=== PATIENT | female | born 1970 | race Hispanic/Latino ===

== ENCOUNTER 2024-08-19 14:42 | Emergency (ER) | payer OTHER ==
[~2024-08-19] VITALS: Ht 170.2 cm; Wt 159.7 kg
[~2024-08-19 14:42] MED LIST: ALBU18HF7 IH; AMIO200T68 PO; APIX5TAB PO; CITA30CA PO; DIVA-78 PO; FURO40TA5 PO; LEVE10006 PO; LOSA50TA64 PO; SPIR25TA6 PO
[2024-08-19 14:48] VITALS: BP 133/75; PULSE 62; RESP 16; TEMP 98.2
== END 2024-08-19 16:43 | disposition left against medical advice (07) ==
LOC: EDH 14:42
DX: K92.1 Melena (principal); R10.9 Unspecified abdominal pain; Z53.21 Procedure and treatment not carried out due to patient leaving prior to being seen by health care provider

== ENCOUNTER 2025-01-06 07:13 | Day surgery (SDC) | payer OTHER, MEDICARE ==
[2025-01-06] VITALS (10 sets, daily range): BP systolic 111–134; BP diastolic 58–74; PULSE 52–65; RESP 15–17; TEMP 97.3–97.7
[~2025-01-06] VITALS: Ht 170.2 cm; Wt 163.3 kg
[~2025-01-06 07:13] MED LIST changes: -ALBU18HF7 IH; -AMIO200T68 PO; +AMIO200T73 PO; +DIVA-134 PO; -DIVA-78 PO; +LEVE100023 PO; -LEVE10006 PO
[2025-01-06] MEDS: 0.9%NACL 1000ML 1,000 ML IV ONE (09:38)
[2025-01-06] MEDS ORDERED: proPOFol 10 MG/ML 20ML VIAL IV ONE (10:28)
[2025-01-29] MEDS ORDERED: FLUT1BLS3 IH (02:24)
[2025-01-29] MEDS ORDERED: BACL10TA PO (02:24)
[2025-01-29] MEDS ORDERED: MONT-39 PO (02:24)
[2025-01-31] MEDS ORDERED: AZIT250T9 PO (14:50)
[2025-01-31] MEDS ORDERED: PRED20TA3 PO (14:51)
== END 2025-01-06 11:45 ==
LOC: ENDO 07:13 → DAH 07:13 → ENDO 11:45
PROVIDERS: ATTEND Internal Medicine Gastroenterology
DX: R19.5 Other fecal abnormalities (principal); K64.0 First degree hemorrhoids; R93.3 Abnormal findings on diagnostic imaging of other parts of digestive tract; R10.31 Right lower quadrant pain; I10 Essential (primary) hypertension; I25.10 Atherosclerotic heart disease of native coronary artery without angina pectoris; I48.20 Chronic atrial fibrillation, unspecified; J44.9 Chronic obstructive pulmonary disease, unspecified; R56.9 Unspecified convulsions; F32.A Depression, unspecified; Z88.0 Allergy status to penicillin; Z88.1 Allergy status to other antibiotic agents; E66.01 Morbid (severe) obesity due to excess calories; Z68.43 Body mass index [BMI] 50.0-59.9, adult; E78.00 Pure hypercholesterolemia, unspecified; Z86.718 Personal history of other venous thrombosis and embolism; Z90.710 Acquired absence of both cervix and uterus; Z79.01 Long term (current) use of anticoagulants; Z98.890 Other specified postprocedural states; Z79.899 Other long term (current) drug therapy
CPT/HCPCS: 00811; 45378; J7030 ×2; J2704; A4215; A4223; A4222; A4221; A4663; A4606; J3490

== ENCOUNTER 2025-05-29 06:13 | Day surgery (SDC) | payer OTHER, MEDICAID ==
[2025-05-29] VITALS (11 sets, daily range): BP systolic 117–154; BP diastolic 60–81; PULSE 55–65; RESP 16–20; TEMP 97.5–97.8
[~2025-05-29] VITALS: Ht 175.3 cm; Wt 172.4 kg
[~2025-05-29 06:13] MED LIST changes: +AZIT250T9 PO; +BACL10TA PO; -DIVA-134 PO; +FLUT1BLS3 IH; -FURO40TA5 PO; +MONT-39 PO; +PRED20TA3 PO
[2025-05-29] MEDS ORDERED: LOSA50TA64 PO (07:46)
[2025-05-29] MEDS ORDERED: [UNRECOGNIZED DRUG - OTHER] PO (07:46)
[2025-05-29] MEDS ORDERED: FURO40TA5 PO (07:46)
[2025-05-29] MEDS ORDERED: XCOPRI PO (07:46)
[2025-05-29] MEDS ORDERED: CITALOPRAM PO (07:46)
[2025-05-29] MEDS: 0.9%NACL 1000ML 1,000 ML IV ONE (07:51)
== END 2025-05-29 10:30 | disposition home or self-care (01) ==
LOC: DAH 06:13
PROVIDERS: ATTEND Internal Medicine Gastroenterology
DX: R19.5 Other fecal abnormalities (principal); K29.50 Unspecified chronic gastritis without bleeding; K44.9 Diaphragmatic hernia without obstruction or gangrene; K57.30 Diverticulosis of large intestine without perforation or abscess without bleeding; K64.0 First degree hemorrhoids; K63.5 Polyp of colon; K31.A0 Gastric intestinal metaplasia, unspecified; I10 Essential (primary) hypertension; E78.00 Pure hypercholesterolemia, unspecified; J45.909 Unspecified asthma, uncomplicated; I48.20 Chronic atrial fibrillation, unspecified; E66.01 Morbid (severe) obesity due to excess calories; Z68.43 Body mass index [BMI] 50.0-59.9, adult; Z86.718 Personal history of other venous thrombosis and embolism; Z90.49 Acquired absence of other specified parts of digestive tract; Z90.710 Acquired absence of both cervix and uterus; Z88.0 Allergy status to penicillin; Z79.899 Other long term (current) drug therapy; Z98.890 Other specified postprocedural states
CPT/HCPCS: 43239; 45380; J7030 ×2; J2704 ×2; A4620; A7002; J3490

== ENCOUNTER 2025-09-28 16:54 | Emergency (ER) | payer OTHER, MEDICAID ==
[~2025-09-28] VITALS: Ht 172.7 cm; Wt 170.6 kg
[~2025-09-28 16:54] MED LIST changes: -AZIT250T9 PO; -BACL10TA PO; -FLUT1BLS3 IH; +FURO40TA5 PO; -PRED20TA3 PO; +XCOPRI PO; +[UNRECOGNIZED DRUG - OTHER] PO
--- NOTE | 2025-09-28 17:01 | ERN ---
ED Note History of Present Illness Stated Complaint: MULTIPLE COMPLAINTS Chief Complaint: Multiple Complaints Time Seen by MD: 16:55 Dictation: PATIENT IS A 55-YEAR-OLD FEMALE WITH HERE WITH MULTIPLE COMPLAINTS TO INCLUDE SUPRAPUBIC PAIN AND EPIGASTRIC PAIN OFF AND ON FOR THE LAST TWO WEEKS. SHE DENIES FEVER CHILLS NAUSEA VOMITING. SHE ALSO STATES WITH THE EPIGASTRIC PAIN AFTER FOOD COMES TIMES IN THE PAIN RADIATES TO HER THROAT. SHE HAS NO SHORTNESS A BREATH STATES SHE HAS NOT BEEN TO SEE HER PRIMARY CARE DOCTOR IN HIS CHANGING INSURANCES ON October. Allergies: Coded Allergies: Penicillins (Unverified Allergy, Unknown, 01/03/25) cephalexin (Unverified Allergy, Unknown, 08/02/24) Home Meds Reported Medications Furosemide (Furosemide) 40 Mg Tablet, 1 TAB PO DAILY for 30 Days, #30 TAB 0 Refills 05/29/25 [Xcopri] No Conflict Check, 100 MG PO HS 05/29/25 Losartan Potassium (Losartan Potassium) 50 Mg Tablet, 1 TAB PO DAILY for 30 Days, #30 TAB 0 Refills 05/29/25 [Pivalproex] No Conflict Check, 500 MG PO TID 05/29/25 Montelukast Sodium (Montelukast Sodium) 10 Mg Tablet, 1 TAB PO DAILY for 30 Days, #30 TAB 0 Refills 01/29/25 Spironolactone (Spironolactone) 25 Mg Tablet, 1 TAB PO DAILY for 30 Days, #30 TAB 0 Refills 08/02/24 Apixaban (Eliquis) 5 Mg Tablet, 1 TAB PO BID for 30 Days, #60 TAB 0 Refills 08/02/24 Citalopram Hydrobromide (Citalopram HBr) 30 Mg Capsule, 30 MG PO AM, CAP 08/02/24 Levetiracetam (Levetiracetam) 1,000 Mg Tablet, 1 TAB PO BID for 30 Days, #60 TAB 0 Refills 08/02/24 Amiodarone HCl (Amiodarone HCl) 200 Mg Tablet, 1 TAB PO DAILY for 30 Days, #30 TAB 0 Refills 08/02/24 Past Medical History Past Medical History: Arrythmia, Asthma, COPD, GI Bleed, Hypertension, Seizure Surgical History: Hysterectomy, Cholecystectomy History: Not Applicable RN Note Reviewed/Agreed w/PFSH: Yes Review of System Dictation CONSTITUTIONAL: NEGATIVE EXCEPT FOR HPI HEAD/FACE: NEGATIVE EXCEPT FOR HPI EENT: NEGATIVE EXCEPT FOR HPI RESPIRATORY: NEGATIVE EXCEPT FOR HPI GASTROINTESTINAL/ABDOMINAL: NEGATIVE EXCEPT FOR HPI INTERMITTENT EPIGASTRIC AND SUPRAPUBIC PAIN TENDERNESS. TWO WEEKS GENITOURINARY: NEGATIVE EXCEPT FOR HPI MUSCULOSKELETAL: NEGATIVE EXCEPT FOR HPI INTEGUMENTARY: NEGATIVE EXCEPT FOR HPI NEUROLOGICAL/PSYCH: NEGATIVE EXCEPT FOR HPI HEMATOLOGIC/LYMPHATIC: NEGATIVE EXCEPT FOR HPI ALL SYSTEMS NEGATIVE, EXCEPT NOTED ABOVE. 13 POINT REVIEW OF SYSTEMS ASSESSED AND ALL NEGATIVE EXCEPT FOR ABOVE. Initial Vital Sign VS Vital Signs Date Time Temp Pulse Resp B/P (MAP) Pulse Ox O2 Delivery O2 Flow Rate FiO2 09/28/25 16:55 97.5 71 20 164/64 95 Room Air 09/28/25 20:09 0 21 Physical Exam Dictation VITAL SIGNS REVIEWED GENERAL APPEARANCE: ALERT, ORIENTED X 3, NO ACUTE DISTRESS, WELL DEVELOPED, NOURISHED. MORBID OBESITY 0/10 PAIN AT THIS TIME. HEAD AND FACE: NON-TRAUMATIC. EYES: PERRL, PINK CONJUNCTIVAS, EYELID NO TRAUMA, ANTERIOR CHAMBER WITH ARCUS SENILIS. EARS: PINNAS INTACT AND NO SIGNS OF TRAUMA OR ERYTHEMA EAR CANALS CLEAR AND NO DISCHARGE TM NO ERYTHEMA NOSE: NO DISCHARGE, NO BLEEDING. OROPHARYNX: MOUTH NORMAL, TONGUE PINK, PHARYNX CLEAR,NO ERYTHEMA, TONSILS NO EXUDATES, NO ABSCESSES NOTED, MUCOUS MEMBRANE MOIST NECK: SUPPLE, NON-TENDER, NO THYROMEGALY, NO MASSES, NO JVD, NO BRUITS BREAST:DEFERRED CHEST:NO TENDERNESS, NO CREPITUS, NO PARADOXICAL MOVEMENT, NO RETRACTIONS LUNGS:CLEAR, WELL-VENTILATED, SYMMETRIC, NO RALES, NO WHEEZING, NO RHONCHI, NO STRIDOR, GOOD BREATH SOUNDS BILATERALLY HEART: REGULAR RATE, REGULAR RHYTHM, NO MURMUR, NO GALLOPS VASCULAR: NO PERIPHERAL EDEMA, ABDOMEN: SOFT, POSITIVE BOWEL SOUNDS, NONDISTENDED, NO GUARDING, MILD SUPRAPUBIC TENDERNESS WITH PALPATION NEGATIVE CVAT BILATERALLY NEGATIVE MYERS'S SIGN RECTAL: DEFERRED GENITAL: DEFERRED NEUROLOGICAL: NORMAL SPEECH, MOTOR FUNCTION INTACT, SENSORY FUNCTION INTACT MUSCULOSKELETAL: NECK NONTENDER, FULL RANGE OF MOTION, BACK NONTENDER, FULL RANGE OF MOTION, EXTREMITIES: NONTENDER, FULL RANGE OF MOTION SKIN: COLOR PINK, DRY, NO TURGOR, NO RASH, NO LACERATIONS, NO ABRASIONS, NO CONTUSIONS. LYMPHATIC: DEFERRED Results (Laboratory/Radiology) Laboratory/Radiology Laboratory Tests Test 09/28/25 17:14 09/28/25 20:00 White Blood Count 6.9 K/uL (4.8-10.8) Red Blood Count 4.15 MIL/uL (4.00-5.50) Hemoglobin 12.6 g/dL (12.0-16.0) Hematocrit 39.1 % (36-48) Mean Corpuscular Volume 94.2 fL (79-99) Mean Corpuscular Hemoglobin 30.4 pg (27.0-33.0) Mean Corpuscular Hemoglobin Concent 32.2 g/dL (32.0-36.0) Red Cell Distribution Width 13.7 % (11.0-15.5) Platelet Count 187 K/uL (130-400) Mean Platelet Volume 11.9 fL (7.5-10.5) H Immature Granulocyte % (Auto) 1.2 % (0-1) H Neutrophils (%) (Auto) 43.3 % (40.0-77.0) Lymphocytes (%) (Auto) 38.8 % (21.0-51.0) Monocytes (%) (Auto) 13.2 % (3.0-13.0) H Eosinophils (%) (Auto) 2.9 % (0.0-8.0) Basophils (%) (Auto) 0.6 % (0.0-5.0) Neutrophils # (Auto) 3.0 K/uL (1.8-7.7) Lymphocytes # (Auto) 2.7 K/uL (1.0-4.8) Monocytes # (Auto) 0.9 K/uL (0.1-1.0) Eosinophils # (Auto) 0.20 K/uL (0.00-0.70) Basophils # (Auto) 0.04 K/uL (0.00-0.20) Absolute Immature Granulocyte (auto 0.08 K/uL (0-1) Nucleated Red Blood Cells 0.0 % (0.0-0.19) Sodium Level 142 mmol/L (136-145) Potassium Level 4.2 mmol/L (3.5-5.1) Chloride Level 106 mmol/L (101-111) Carbon Dioxide Level 29 mmol/L (21-32) Blood Urea Nitrogen 14 mg/dL (7-18) Creatinine 0.8 mg/dL (0.5-1.0) Glomerular Filtration Rate Calc 86 mL/min (>90) Random Glucose 101 mg/dL (70-105) Total Calcium 8.3 mg/dL (8.5-10.1) L Troponin I High Sensitivity < 4 ng/L (4-50) L Lipase 37 U/L (16-77) Urine Color YELLOW (YELLOW) Urine Appearance CLEAR (CLEAR) Urine pH 6.0 (5.0-8.0) Urine Specific [place] 1.030 (1.001-1.031) Urine Protein NEGATIVE mg/dL (NEGATIVE) Urine Glucose (UA) NEGATIVE mg/dL (NEGATIVE) Urine Ketones 5 mg/dL (NEGATIVE) H Urine Occult Blood NEGATIVE (NEGATIVE) Urine Nitrate NEGATIVE (NEGATIVE) Urine Bilirubin NEGATIVE mg/dL (NEGATIVE) Urine Urobilinogen 4.0 mg/dL (0.2-1.0) H Urine Leukocyte Esterase NEGATIVE Radha/uL Urine RBC 11-25 /HPF (0-1) H Urine WBC 2-5 /HPF (0-1) H Urine Squamous Epithelial Cells FEW /HPF (0-2) Urine Bacteria RARE /HPF (None Seen) Urine Hyaline Casts 0-1 /LPF (0-1 /LPF) ORDERING PHYSICIAN: RICHIE CASTELLANOS PROCEDURE: CXR1VW - CHEST 1VW EXAM: CR Chest, 1 View. CLINICAL HISTORY: INTERMITTENT CHEST PAIN TWO WEEKS COMPARISON: January 31, 2025. FINDINGS: LUNGS: There is no mass, infiltrate, or acute pulmonary abnormality. PLEURAL SPACES: No pleural effusion or pneumothorax. MEDIASTINUM: Stable mild cardiomegaly. BONES: No aggressive appearing osseous lesion seen. IMPRESSION: No acute cardiopulmonary pathology is evident. Stable cardiomegaly. No significant interval change /[place] Labs Reviewed?: Yes EKG Comment: 1727/EKG SINUS RHYTHM/HEART RATE 71/OCCASIONAL PACS. NONSPECIFIC CHANGES TO LEADS V4 V5 V6 ED Course ED Course Orders Procedure Category Date Status Time Cbc With Differential LAB 09/28/25 Complete 16:58 Troponin I High LAB 09/28/25 Complete Sensitivity 16:58 Urinalysis Profile LAB 09/28/25 Complete 16:58 12 Lead Ekg Tracing- EKG 09/28/25 Complete Technical 16:58 Chest 1vw RAD 09/28/25 Resulted 16:58 Lipase LAB 09/28/25 Complete 16:58 Basic Metabolic Panel LAB 09/28/25 Complete 16:58 Vital Signs Date Time Temp Pulse Resp B/P (MAP) Pulse Ox O2 Delivery O2 Flow Rate FiO2 09/28/25 20:09 98.1 78 17 149/98 98 Room Air* 0 21 09/28/25 16:55 97.5 71 20 164/64 95 Room Air 5/PATIENT HAS NO PAIN AT THIS TIME. SHE IS AWARE HER WORKUP AND TO INCLUDE CARDIAC WAS COMPLETELY UNREMARKABLE SHE DOES HAVE A ACUTE UTI AND WE WILL BE TREATED WITH LEVAQUIN TOLD TO SEE HER DOCTOR MONDAY. Medical Decision Making MDM MDM: DIFFERENTIAL DIAGNOSIS: ACS/AMI/ELECTROLYTE IMBALANCE/DEHYDRATION/GASTRITIS/GERD/UTI/PATROL INSPECTOR/ESOPHAGEAL REFLUX DISEASE RATIONALE: TESTS CONSIDERED AND ORDERED SECONDARY TO SHARED DECISION MAKING INCLUDE: EKG/LABS PREVIOUS OUTSIDE RECORDS REVIEWED: OLD ER VISITS. RISK OF COMPLICATION AND/OR MORBIDITY OR MORTALITY OF PATIENT MANAGEMENT: NONE MEDICATIONS-PER MEDICATION RECONCILIATION NEED FOR HOSPITALIZATION: PATIENT DOES NOT MEET CRITERIA FOR HOSPITALIZATION. NONE NEED FOR EMERGENCY MAJOR/MINOR SURGERY: NO THERE ARE NO SOCIAL CONCERNS WITH THIS PATIENT. PRESCRIPTION DRUG MANAGEMENT LEVAQUIN/OMEPRAZOLE PRESCRIPTIONS WILL INCLUDE SYMPTOMATIC CARE PATIENT'S PRIOR EXTERNAL MEDICAL RECORDS FROM OTHER ER VISITS WERE REVIEWED BY ME INDICATED. PRIOR TESTING AND RESULTS FROM PREVIOUS VISITS WERE REVIEWED. PRIOR TESTS WERE TAKEN INTO ACCOUNT WITH MEDICAL DECISION MAKING AND RESOURCE UTILIZATION, INDEPENDENT HISTORIAN/HISTORIANS WERE USED TO OBTAIN COMPLETE MEDICAL HISTORY. I INDEPENDENTLY INTERPRETED THE TEST THAT WERE PERFORMED, RESULTS WERE REVIEWED BY ME AND CONSIDERED FINDINGS ON RADIOLOGY IF ORDERED. MEDICAL MANAGEMENT AND EXAMINATION INTERPRETATION DISCUSSIONS WERE HAD BY ME WITH OTHER QUALIFIED HEALTHCARE PROFESSIONALS INDICATED FOR THE PATIENT'S C ARE. DX & DISP Disposition: Discharge Departure Impression: Primary Impression: Acute UTI Additional Impressions: Gastritis, Hypocalcemia Condition: Stable Scripts Omeprazole (Omeprazole) 40 Mg Capsule.dr 1 CAP PO DAILY for 30 Days, #30 CAP 0 Refills Prov: RICHIE CASTELLANOSP 09/28/25 Levofloxacin (Levofloxacin) 500 Mg Tablet 1 TAB PO DAILY for 7 Days, #7 TAB 0 Refills Prov: RICHIE CASTELLANOS 09/28/25 Additional Instructions: FOLLOW-UP WITH PRIMARY CARE PROVIDER IN 1 TO 2 DAYS. TAKE MEDICATIONS DIRECTED HERE IN THE EMERGENCY ROOM. OKAY TO CONTINUE HOME MEDICATIONS UNLESS OTHERWISE DISCUSSED DURING YOUR VISIT IN THE EMERGENCY ROOM TODAY. RETURN TO YOUR NEAREST EMERGENCY ROOM IF SYMPTOMS WORSEN OR IF THERE IS NO IMPROVEMENT. CALL 911 IF YOU NEED IMMEDIATE ASSISTANCE. TAKE TYLENOL OR MOTRIN OVER-THE- COUNTER NEEDED AND IF NO CONTRAINDICATIONS ARE PRESENT. INCREASE ORAL HYDRATION. A WOUND CULTURE OR URINE CULTURE WAS ORDERED HERE IN THE EMERGENCY ROOM DEPARTMENT PLEASE FOLLOW-UP WITH PRIMARY CARE PROVIDER AND ADVISE THEM TO GET REPEAT PORTS FROM OUR FACILITY. IF YOU HAD ANY CECE WRAP/SPLINTS THAT WERE APPLIED HERE, PLEASE DO NOT REMOVE THEM UNTIL YOU SEE YOUR PRIMARY CARE OR SPECIALTY. TAKE ANTIBIOTICS DIRECTED UNTIL GONE. INCREASE YOUR WATER INTAKE. WATER ONLY WITH FOOD. NO SPICY FOODS, NO ALCOHOL, NO TOBACCO, NO CITRUS FRUIT JUICE, NO SPICY FOODS UNTIL CLEARED BY YOUR DOCTOR ON MONDAY OR MONDAY. Referrals: CHING RIDER MD (PCP) Time of Disposition: 20:58 I have reviewed the case, and I agree with, Diagnosis and Plan RICHIE CASTELLANOS [facility] Sep 28, 2025 17:01
--- NOTE | 2025-09-28 17:33 | EKG ---
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
[2025-09-28 17:43] LABS: IMMATURE GRANULOCYTE ABSOLUTE 0.08 K/uL (0-1); NUCLEATED RED BLOOD CELLS 0.0 % (0.0-0.19); PLATELET COUNT (AUTO) 187 K/uL (130-400); RED BLOOD CELL COUNT(AUTO) 4.15 MIL/uL (4.00-5.50); RED CELL DISTRIBUTION WIDTH 13.7 % (11.0-15.5); WHITE BLOOD COUNT (AUTO) 6.9 K/uL (4.8-10.8)
[2025-09-28 17:48] LABS: CREATININE 0.8 mg/dL (0.5-1.0); GLOMERULAR FILTR. RATE CALC 86.0 mL/min (>90); GLUCOSE,RANDOM 101.0 mg/dL (70-105); SODIUM SERUM 142.0 mmol/L (136-145); UREA NITROGEN, BLOOD 14.0 mg/dL (7-18)
--- NOTE | 2025-09-28 19:28 | HMCIMG ---
EXAM: CR Chest, 1 View. CLINICAL HISTORY: INTERMITTENT CHEST PAIN TWO WEEKS COMPARISON: January 31, 2025. FINDINGS: LUNGS: There is no mass, infiltrate, or acute pulmonary abnormality. PLEURAL SPACES: No pleural effusion or pneumothorax. MEDIASTINUM: Stable mild cardiomegaly. BONES: No aggressive appearing osseous lesion seen. IMPRESSION: No acute cardiopulmonary pathology is evident. Stable cardiomegaly. No significant interval change /[place]
--- NOTE | 2025-09-28 20:00 | NUR ---
PT CARE ASSUMED AT THIS TIME
[2025-09-28 20:43] LABS: APPEARANCE,URINE CLEAR (CLEAR); GLUCOSE, URINE (UA) NEGATIVE (NEGATIVE); LEUKOCYTE ESTERASE ,URINE NEGATIVE Leu/uL (NEGATIVE); NITRATE,URINE NEGATIVE (NEGATIVE); OCCULT BLOOD,URINE NEGATIVE (NEGATIVE)
[2025-09-28 20:44] LABS: ADD UA MICROSCOPIC YES
[2025-09-28 20:46] LABS: HYALINE CASTS, URINE 0-1 /LPF (0-1 /LPF); SQUAMOUS EPITHELIAL CELL,UR FEW /HPF (0-2)
[2025-09-28] MEDS ORDERED: LEVO-70 PO (20:58)
[2025-09-28] MEDS ORDERED: OMEP40CA21 PO (20:58)
[2025-09-28 21:18] VITALS: BP 152/87; PULSE 77; RESP 16; TEMP 98.1; O2SAT 99
== END 2025-09-28 21:21 | disposition home or self-care (01) ==
LOC: EDH 16:54
DX: N39.0 Urinary tract infection, site not specified (principal); K29.70 Gastritis, unspecified, without bleeding; E83.51 Hypocalcemia; I10 Essential (primary) hypertension; J44.89 Other specified chronic obstructive pulmonary disease; Z88.1 Allergy status to other antibiotic agents; Z88.0 Allergy status to penicillin; Z79.899 Other long term (current) drug therapy; Z79.01 Long term (current) use of anticoagulants; Z90.49 Acquired absence of other specified parts of digestive tract; Z90.710 Acquired absence of both cervix and uterus
CPT/HCPCS: 36415; 71045; 80048; 81001; 83690; 84484; 85025; 93005; 99285